=== PATIENT | female | born 1985 | race Caucasian/White ===

== ENCOUNTER 2017-04-16 11:22 | Day surgery (SDC) | payer OTHER ==
[~2017-04-16 11:22] MED LIST: FENTANYL 100MCG/2ML SOL ONE; LIDOCAINE HCL 1% MPF SOL ONE; MIDAZOLAM 2 MG/2 ML SOL ONE; PROPOFOL 500 MG/50 ML EMU IV ONE
[2017-04-16] MEDS ORDERED: BUPIVACAINE HCL 0.5% MPF 10 ML SOL ONE (13:16)
[2017-04-16] MEDS ORDERED: LIDOCAINE HCL 1% MPF SOL ONE (13:16)
[2017-04-16 14:47] VITALS: BP 104/68; PULSE 82; RESP 16; TEMP 98.4; O2SAT 98
== END 2017-04-16 14:51 | disposition home or self-care (01) ==
LOC: SURG 11:22
PROVIDERS: ATTEND Podiatrist
DX: L94.2 Calcinosis cutis (principal)
CPT/HCPCS: 28043; 99001; J2001; J2250; J3010; J2704

== ENCOUNTER 2017-09-16 20:18 | Emergency (ER) | payer OTHER ==
[2017-09-16 20:36] VITALS: RESP 18; TEMP 100.2; O2SAT 100
[2017-09-16] MEDS ORDERED: ONDANSETRON HCL 4 MG/2 ML SOL IV ONE (20:41)
[2017-09-16] MEDS ORDERED: MORPHINE SULFATE 10 MG/ML SOL IV ONE (20:41)
[2017-09-16] MEDS ORDERED: ONDANSETRON HCL 4 MG/2 ML SOL ONE (20:44)
[2017-09-16] MEDS ORDERED: SODIUM CHLORIDE 0.9% 1000 ML SOL IV SCH (20:45)
[2017-09-16 21:20] LABS: BASOPHILS % (AUTO) 1 % (0-3); EOSINOPHILS % (AUTO) 0 % (0-9); HEMATOCRIT 32 % (35-47); MEAN CORPUSCULAR VOLUME 86 fL (81-99); MONOCYTES % (AUTO) 4.4 % (0-12); NEUTROPHILS % (AUTO) 88.2 % (37-80)
[2017-09-16 21:42] LABS: ALBUMIN 3.4 gm/dl (3.4-5.0); CALCIUM 8.1 mg/dl (8.5-10.1)
[2017-09-16] MEDS ORDERED: AMPICILLIN 1 GM PDS ONE (21:43)
[2017-09-16 21:44] VITALS: BP 120/83; PULSE 120
[2017-09-16] MEDS ORDERED: PDS IV SCH (21:45)
[2017-09-16] MEDS ORDERED: SODIUM CHLORIDE 0.9% IV SCH (21:45)
[2017-09-16] MEDS ORDERED: AMPICILLIN IV SCH (21:45)
[2017-09-16] MEDS ORDERED: SULBACTAM IV SCH (21:45)
[2017-09-16] MEDS ORDERED: ACETAMINOPHEN 500 MG 500 MG TAB PO ONE (21:59)
[2017-09-16] MEDS ORDERED: ACETAMINOPHEN 500 MG 500 MG TAB ONE (22:00)
== END 2017-09-16 22:34 | disposition short-term general hospital (02) ==
LOC: ED 20:18
DX: K35.80 Unspecified acute appendicitis (principal)
CPT/HCPCS: 36415; 74177; 80053; 82150; 85025; 96365; 96366; 96374; 99284; J0290; J2405; Q9967